=== PATIENT | female | born 1940 | race Caucasian/White ===

== ENCOUNTER 2017-07-01 21:19 | Inpatient (IN) | payer MEDICARE, BC ==
[~2017-07-01] VITALS: Ht 167.6 cm; Wt 77.1 kg
--- NOTE | ~2017-07-01 | DS ---
Discharge Summary [facility] [address] [facility] [address] [place]. [address] NAME: SANDRA SMITH : 40 STATUS : DIS IN PAT#: [id number] AGE: 77 ADM/REG DATE : 07/02/17 MR#: [id number] REPORT SERV DATE: 07/06/17 DICTATED BY: DATE: REPORT STATUS : Draft TRANSCRIBED BY: MODL DATE: 07/03/17 ADMISSION DATE: 07/02/2017 DISCHARGE DATE: 07/03/2017 [facility] CONSULTANTS: Dr. James Sexton, of Gastroenterology. DISCHARGE DIAGNOSES: 1. Acute blood loss anemia-symptomatic due to upper gastrointestinal bleed. 2. Evidence of multiple linear ulcerations and hiatal hernia on EGD, suspect due to recent nonsteroidal anti-inflammatory use. 3. Scoliosis and chronic pain syndrome. 4. History of osteoarthritis. 5. Dysuria-no evidence of urinary tract infection. 6. Allergic rhinitis. 7. Insomnia. 8. Hypertension. 9. History of occasional alcohol use. IMAGING: None. EGD July [address] James Sexton, shows 6 cm hiatal hernia. Three medium-sized nonbleeding linear gastric ulcers with no stigmata of bleeding in the proximal stomach at the bottom of the hiatal hernia. Biopsies taken. PERTINENT LABS: Comprehensive metabolic panel normal. Hemoglobin initially 6.8, discharge hemoglobin 8.1, platelets normal. Coagulation studies normal. Urinalysis showed trace leukocyte esterase, rare bacteria, and no white blood cells. BRIEF HISTORY: For full details, please see the previously dictated history of present illness by Dr. Benjamín Obregon. This is a 77-year-old white female, sent by primary care provider, Dr. Blackman to the emergency department for a decline in hemoglobin with associated melena and weakness. She denied any other symptoms of symptomatic anemia- specifically no chest pain, shortness of breath, or tachycardia. The patient had recently been taking nonsteroidal anti-inflammatories for scoliosis. In the emergency department, her initial workup revealed a hemoglobin of 6.8, which represented a marked decline from prior values of 13. She had no abnormalities of her vital signs and was admitted to [address] [place] [address] for further management. HOSPITAL COURSE: The patient was placed on IV fluids, IV Protonix drip, and kept n.p.o. for GI evaluation. She was seen by nurse practitioner, UZIEL Mc on July 02 and set up for an upper endoscopy on July [address] James Sexton. Discharge Summary [place] [address] [place] [place]. [id number] NAME: SANDRA SMITH : 40 STATUS : DIS IN PAT#: [id number] AGE: 77 ADM/REG DATE : 07/02/17 MR#: [id number] REPORT SERV DATE: 07/06/17 DICTATED BY: DATE: REPORT STATUS : Draft TRANSCRIBED BY: MODL DATE: 07/03/17 The patient's hemoglobin and hematocrit values were trended serially, and she did require two units of packed red blood cells transfusion during the admission. She did not demonstrate any recurrence of her melena during the admission and on the EGD, there was no evidence of recent bleeding. She did have multiple linear ulcerations at the distal aspect of her hiatal hernia and the cause of her upper GI bleed is felt to be nonsteroidal anti- inflammatories. She was expressly instructed to discontinue all nonsteroidal anti- inflammatories and not to take any aspirin post discharge either. She will be placed on Protonix 40 mg p.o. twice a day for 8 weeks to follow up with her gauger chief delivery Dr. Mcgowan in the office in four to six weeks with a CBC. She should also follow up with primary care provider, Dr. Blackman within 7-14 days for hospital followup. She did endorse some dysuria during the admission and states she has a history of frequent urinary tract infections. Urinalysis here was not suggestive of a significant UTI, and she was not treated with antibiotics. She also endorsed some sinus congestion and was placed on Claritin and Flonase for this with improvement. Given that she is no longer able to take nonsteroidal anti-inflammatories, she was advised to take Tylenol for pain and was given a small supply of hydrocodone for discharge if her pain is refractory to Tylenol. DISCHARGE DISPOSITION: To home in the care of her supportive family with no specific activity or dietary restrictions. FOLLOWUP: Followup appointments as above. DISCHARGE MEDICATIONS: Include: 1. Fluorometholone eye drops in both eyes at bedtime. 2. Triamterene/HCTZ 37.5/25 mg p.o. daily-patient is noncompliant with this on pharmacy review. 3. Claritin 10 mg p.o. daily. 4. Wellbutrin 100 mg p.o. q.a.m. 5. Trazodone 150 mg p.o. at bedtime. 6. Nifedipine 30 mg p.o. daily-patient is noncompliant with this on pharmacy review. 7. Protonix 40 mg p.o. b.i.d. for 8 weeks. 8. Tylenol 650 mg p.o. q.6 hours p.r.n. pain. 9. Hydrocodone/acetaminophen 5/325 mg half to one tablet p.o. every six hours as needed for severe pain. Thirty tablets dispensed with no refills. Thirty five minutes was spent in completion of the discharge. MAKEDA/DIANDRA Brian Sawyer M.D. Discharge Summary [address] [address] NAME: SANDRA SMITH : 40 STATUS : DIS IN PAT#: [id number] AGE: 77 ADM/REG DATE : 07/02/17 MR#: [id number] REPORT SERV DATE: 07/06/17 DICTATED BY: DATE: REPORT STATUS : Draft TRANSCRIBED BY: DIANDRA DATE: 07/03/17 / [id number] CC: Juan Song M.D. Donald Hetzel, M.D.
--- NOTE | ~2017-07-01 | HP ---
History And Physical [place] [address] [place]. [address] NAME: SANDRA SMITH : 40 STATUS : ADM Estuardo PAT#: [id number] AGE: 77 ADM/REG DATE : 07/01/17 MR#: [id number] REPORT SERV DATE: 07/02/17 DICTATED BY: BENJAMÍN GUTIERREZ DATE: 07/02/17 REPORT STATUS : Draft TRANSCRIBED BY: MODL DATE: 07/02/17 DATE OF ADMISSION: 07/01/2017 CHIEF COMPLAINT: Black, tarry stool. HISTORY OF PRESENT ILLNESS: This is a 77-year-old female who was sent by her primary care physician, Dr. Blackman, to the emergency room for a fall in her hemoglobin and hematocrit levels and GI bleeding. History is obtained from the patient, her who is at bedside, and reviewing data available on the [employer] system. According to the patient and her , she had been in her usual state of health until about four days ago when she had a bowel movement with black, tarry stools. She knew it was blood in the stool, and called Dr. Blackman's office, and blood work was drawn. Today, they called her to have her report to the emergency room for further evaluation. According to the patient, other than that one episode of black, tarry stools, she has had no further bleeding. She feels fine. Does not have any dyspnea with exertion or palpitations. In the emergency room, initial workup revealed a hemoglobin of 6.8, hematocrit of 23.2. Hospitalist Service is asked to admit her for further evaluation and treatment. At the time of my evaluation, she denied any chest pain, palpitations, or orthopnea. She had no cough, hemoptysis, night sweats, or weight loss. She denied any recent falls or loss of consciousness. No history of recent fevers, chills, nausea, vomiting, diarrhea. No history of hematemesis or hematuria. No other history of recent travel or exposures other than those mentioned above. PAST MEDICAL HISTORY: Significant for history of hypertension, osteoarthritis controlled by [id number] NSAIDs, and has had a hysterectomy in the past as well. SOCIAL HISTORY: She does not smoke. Drinks about two mixed drinks on a daily basis at night and does not use any recreational drugs. She used to work in an office-based environment. FAMILY HISTORY: Noncontributory. MEDICATIONS: Her medications at home were reviewed by me in the chart today and reordered by me. REVIEW OF SYSTEMS: As in history of present illness. All other systems were reviewed in detail and are quite unremarkable. PHYSICAL EXAMINATION: GENERAL: This is a pleasant 77-year-old, not in any acute distress. HEENT: Head is atraumatic, normocephalic. She is alert, awake, oriented to time, place, and person. Her pupils are equal, reacting to light and accommodating. External ocular muscles are intact. Membranes are moist and pink. Sclerae are nonicteric. History And Physical [address] [address] NAME: SANDRA SMITH : 40 STATUS : ADM Estuardo PAT#: [id number] AGE: 77 ADM/REG DATE : 07/01/17 MR#: [id number] REPORT SERV DATE: 07/02/17 DICTATED BY: BENJAMÍN GUTIERREZ DATE: 07/02/17 REPORT STATUS : Draft TRANSCRIBED BY: DIANDRA DATE: 07/02/17 NECK: Supple with no jugular venous distention, lymphadenopathy, or thyromegaly. LUNGS: Clear to auscultation with no wheezes, rubs, or crackles. HEART: Heart sounds were regular with no murmurs, rubs, or gallops. ABDOMEN: Soft, nontender. Bowel sounds are present. EXTREMITIES: Showed no cyanosis, clubbing, or edema. NEURO: Grossly intact. No focal sensory or motor deficits. Higher functions appear intact. VITAL SIGNS: Her temperature was 98.5, pulse 91, respirations 18 a minute, blood pressure was 160/77, oxygen saturations were 97% breathing 2 L of oxygen via nasal cannula. LABORATORY DATA: Reviewed on the [employer] system showed a normal CMP with a blood glucose of 91. Her alkaline phosphatase, ALT, and AST are within normal limits. CBC showed a white blood cell count of 8700, hemoglobin of 6.8, hematocrit of 23.2 which had dropped from 12.8 and 38.7, although that was in 02/2013. Her MCV was 70.7 and platelet count was 447,000. Prothrombin time was 13.9 with an INR of 1.1. No imaging was done in the emergency room today and an EKG done in the emergency room showed normal sinus rhythm at a rate of 89 per minute without any acute ST-T changes. IMPRESSION: 1. Acute upper gastrointestinal bleeding. 2. Anemia secondary to blood loss. 3. Hypertension. 4. Osteoarthritis. PLAN: We will admit Ms. Smith to the Hospitalist Service with telemetry for a 24-hour observation. We will follow serial hemoglobin and hematocrit levels; type, cross, and transfuse if necessary. We will go ahead and consult Dr. Mcgowan, her material planning analyst, to see her in the morning and keep her n.p.o. for now. She will also be placed on a Protonix infusion at this time. We will hold her p.o. medications and provide hydralazine intravenously to control her blood pressures. She will also be placed on SCDs for DVT prophylaxis while here. I have discussed the above plans with the patient and the . Questions were answered, and they are agreeable to the above recommendations. Hospitalist Service will be following her during her stay here. /DIANDRA Benjamín Gutierrez M.D. / [id number] CC: Brian Sawyer M.D. Sixto Blackman M.D.
--- NOTE | ~2017-07-01 | EGD ---
EGD REPORT [facility] [address] [place] [place] [address] NAME: SANDRA SMITH : 40 STATUS : ADM IN PAT#: [id number] AGE: 77 ADM/REG DATE : 07/02/17 MR#: [id number] REPORT SERV DATE: 07/03/17 DICTATED BY: DATE: REPORT STATUS : Draft TRANSCRIBED BY: [employer] DATE: 07/03/17 [facility] Patient Name: Sandra Smith Date of : 1940 Attending MD: JODIE TALBOT MD Procedure Date No Time: 07/03/2017 Procedure: Upper GI endoscopy Indications: Melena, anemia (Hgb 6.8), new prescription of NSAIDs. Medicines: Monitored Anesthesia Care Complications: No immediate complications. Procedure: Pre-Anesthesia Assessment: - ASA Grade Assessment: II - A patient with mild systemic disease. After obtaining informed consent, the endoscope was passed under direct vision. Throughout the procedure, the patient's blood pressure, pulse, and oxygen saturations were monitored continuously. The GIF [id number] was introduced through the mouth, and advanced to the second part of duodenum. The upper GI endoscopy was accomplished without difficulty. The patient tolerated the procedure well. Findings: A 6 cm hiatus hernia was found. The proximal extent of the gastric folds (end of tubular esophagus) was 35 to 41 cm from the incisors. The Z-line was 35 cm from the incisors. Three medium sized non-bleeding linear gastric ulcers with no stigmata of bleeding were found in the proximal stomach, just at the bottom of her hiatal hernia where the pinch of the hiatus began. I suspect her NSAID use and hiatal hernia were the cause. Biopsies were taken with a cold forceps for Helicobacter pylori cultures. The examined duodenum was normal. Impression: - Hiatus hernia. - Gastric ulcers with clean base. Biopsied. - Normal examined duodenum. Recommendation: - Await pathology results. - Use Protonix (pantoprazole) 40 mg PO BID for 8 weeks. - No aspirin, ibuprofen, naproxen, or other non-steroidal anti-inflammatory drugs. - Regular diet. - Given NSAID use and multiple superficial ulcerations, can debate repeating EGD to assess for resolution but will discuss that in clinic. EGD REPORT [address] [place]. [address] NAME: SANDRA SMITH : 40 STATUS : ADM IN [facility]#: [id number] AGE: 77 ADM/REG DATE : 07/02/17 MR#: [id number] REPORT SERV DATE: 07/03/17 DICTATED BY: DATE: REPORT STATUS : Draft TRANSCRIBED BY: [employer] DATE: 07/03/17 -Follow up with Dr. Mcgowan in 4-6 weeks. Procedure Code(s): --- Professional --- 17071, Esophagogastroduodenoscopy, flexible, transoral; with biopsy, single or multiple Diagnosis Code(s): --- Professional --- K44.9, Diaphragmatic hernia without obstruction or gangrene K25.9, Gastric ulcer, unspecified as acute or chronic, without hemorrhage or perforation K92.1, Melena CPT copyright 2013 [employer]. All rights reserved. The codes documented in this report are preliminary and upon electrical system specialist review may be revised to meet current compliance requirements. JODIE TALBOT MD 07/03/2017 7:57 AM Number of Addenda: 0 Note Initiated On: 07/03/2017 7:16 AM Scope Withdrawal Time 0 hours 0 minutes 0 seconds [address] [place] [address]
--- NOTE | ~2017-07-01 | CN ---
Consultation Report [facility] [address] [place]. [address] NAME: SANDRA SMITH : 40 STATUS : ADM Estuardo PAT#: [id number] AGE: 77 ADM/REG DATE : 07/01/17 MR#: [id number] REPORT SERV DATE: 07/02/17 DICTATED BY: DEBBIE HODGES DATE: 07/02/17 REPORT STATUS : Draft TRANSCRIBED BY: MODL DATE: 07/02/17 GI CONSULTATION DATE OF CONSULTATION: 07/02/2017 REASON FOR CONSULTATION: Evaluation and management of upper GI bleed. HISTORY OF PRESENT ILLNESS: Ms. Smith is a 77-year-old female patient, who has been seen by Dr. Mcgowan in the past in the outpatient setting, who presented to [facility] after being evaluated by her primary care physician, Dr. Blackman, for anemia and complaints of black tarry stools. The patient states that she has been having back pain over the last two to three weeks with her on Wednesday taking Naprosyn, she states, for two days. The day after she stopped taking the Naprosyn, she had a black tarry bowel movement. She states that she went to see Dr. Blackman, he obtained blood work, they called her and told her that her hemoglobin was low and to report to the emergency room for further evaluation. She tells me that she does not have any abdominal pain. She has had no nausea, vomiting, or abdominal burning. No dysphagia or odynophagia. No bright red blood per rectum. No diarrhea or constipation. Her last colonoscopy was done in 2011 with colon polyps x5, several were tubular adenomas, and one was hyperplastic. She also had melanosis coli and sigmoid colon diverticulosis. She is currently due for her repeat colonoscopy. Hemoglobin on admission was 6.8. She has been given two units of packed red blood cells. Her last hemoglobin was checked and it was 7.4. She has had no further bleeding since coming into the hospital. Her vital signs have been stable. She is on a Protonix drip at present. She denies any associated fever, chest pain, shortness of breath, or weight loss. I have discussed with her that we will plan on letting her have clear liquids today, n.p.o. after midnight, and for endoscopy in the morning with Dr. Sexton. PAST MEDICAL HISTORY: Positive for hypertension, osteoarthritis, back pain with recent use of Naprosyn. PAST SURGICAL HISTORY: Includes a hysterectomy. FAMILY HISTORY: Noncontributory from a GI standpoint. SOCIAL HISTORY: She is and lives independently. She does not use tobacco. She drinks one to two mixed drinks nightly. Denies any illicit drugs. ALLERGIES: TO MORPHINE AND MEPERIDINE. HOME MEDICATIONS: Wellbutrin, Singulair, nifedipine, trazodone, and Dyazide. REVIEW OF SYSTEMS: A 10-point review of systems has been obtained with pertinent positives being addressed in the history of present illness. Consultation Report [facility] [address] [facility] [place]. [address] NAME: SANDRA SMITH : 40 STATUS : ADM Estuardo PAT#: [id number] AGE: 77 ADM/REG DATE : 07/01/17 MR#: [id number] REPORT SERV DATE: 07/02/17 DICTATED BY: DEBBIE HODGES DATE: 07/02/17 REPORT STATUS : Draft TRANSCRIBED BY: DIANDRA DATE: 07/02/17 PERTINENT LABORATORY DATA: Sodium 141, potassium 3.5, BUN is 19, creatinine 0.78. White count 8.2, hemoglobin 7.4, hematocrit 24.7, platelet count of 405. INR of 1.1. PHYSICAL EXAMINATION: VITAL SIGNS: Temperature 99.4, pulse 99, respirations 16, blood pressure is 142/70. NEURO: Reveals an alert female, resting in bed with no focal deficits. GENERAL: She is cooperative. She is in no acute distress. She is awake, alert, and oriented x3. HEAD, EARS, EYES, NOSE, AND THROAT: Anicteric. Pupils equal, round, reactive to light and accommodation. Normocephalic and atraumatic. NECK: Supple with no JVD or palpable nodes. LUNGS: Clear anteriorly with normal respiratory effort exhibited. Equal expansion. CARDIOVASCULAR SYSTEM: Regular rate and rhythm. S1 and S2. No murmurs, rubs, gallops, S3, or S4 appreciated. ABDOMEN: Soft, nontender, nondistended with active bowel sounds in all four quadrants. EXTREMITIES: No edema. Normal distal pulses. SKIN: Warm, dry, and intact. ASSESSMENT: 1. Recent melena after Naprosyn use. 2. Back pain/scoliosis with recent NSAID use. 3. Acute blood loss anemia, status post two units of packed red blood cells. PLAN: 1. Continue Protonix drip. 2. Clear liquid diet and n.p.o. after midnight. 3. Trend H and H, transfuse if additional blood needed. 4. EGD in the morning with Dr. Sexton. 5. Morning labs, CBC, BMP, PT/INR. We will follow. CALIN/DIANDRA Debbie UZIEL Nava / [id number] CC: Brian Sawyer M.D. Sixto Blackman M.D.
[~2017-07-01 21:19] MED LIST: ADVIL PM1 CAP PO; CENTRUM TAB1 TAB PO; DYAZIDE1 CAP PO; ESTRACE1 MG PO; ESTRACE2 MG PO; MAX25 PO; NAP500 PO; OS500+D PO; TYLENOL PM PO
[2017-07-01 21:57] LABS: BASOPHILS 0.8 %; BASOPHILS ABSOLUTE 0.07 10/3/uL (0.0-0.16); EOSINOPHILS 3.2 %; EOSINOPHILS ABSOLUTE 0.28 10/3/uL (0.0-0.53); ER CBC TAT 0 Hrs 07 Mins; IMMATURE GRANULOCYTES 0.2 %; IMMATURE GRANULOCYTES ABSOLUTE 0.02 10/3/uL (0.0-0.11); LYMPHOCYTES 14.4 %; LYMPHOCYTES ABSOLUTE 1.25 10/3/uL (0.67-4.30); MEAN PLATELET VOLUME 8.2 fL (9.2-13.0); MONOCYTES 9.6 %; MONOCYTES ABSOLUTE 0.83 10/3/uL (0.21-1.20); NEUTROPHILS 71.8 %; NEUTROPHILS ABSOLUTE 6.24 10/3/uL (2.02-8.40); PLATELET COUNT 447 10/3/uL (150-400); RED CELL COUNT 3.28 10/6/uL (4.0-5.6); WHITE BLOOD CELLS 8.7 10/3/uL (4.5-10.5)
[2017-07-01 21:59] LABS: HEMATOCRIT 23.2 % (36.0-48.0); HEMOGLOBIN 6.8 g/dL (12.0-16.0); MEAN CORPUS HGB CONC 29.3 g/dL (32.0-36.0); MEAN CORPUSCULAR HEMOGLOB 20.7 pg (26.0-34.0); MEAN CORPUSCULAR VOLUME 70.7 fL (80-100); RBC DISTRIBUTION WIDTH 18.4 % (12.0-16.0)
[2017-07-01 22:00] LABS: MANUAL DIFF NO %
[2017-07-01 22:05] LABS: INTERNATIONAL NORMAL RATI 1.1 UNITS (-); PARTIAL THROMBO TIME 26.2 SEC (22.5-37.2); PROTIME (NOT ORD) 13.9 SEC (12.0-14.5)
[2017-07-01 22:10] LABS: A/G RATIO 1.2 (0.7-1.9); ALBUMIN 4.2 G/DL (3.5-5.0); BUN (BLOOD UREA NITROGEN) 21 MG/DL (6-23); CALCIUM, SERUM 9.3 MG/DL (8.5-10.4); CHLORIDE, SERUM 108 MMOL/L (96-112); CO2 (CARBON DIOXIDE) 24 MMOL/L (24-34); CREATININE 0.99 MG/DL (0.55-1.02); GFR AFRICAN AMERICAN 64 ML/MIN (>=60); GFR NON AFRICAN AMERICAN 55 ML/MIN (>=60); GLOBULIN 3.4 G/DL (2.5-4.1); GLUCOSE, SERUM 91 MG/DL (60-99); POTASSIUM, SERUM 3.8 MMOL/L (3.5-5.3); SGOT(AST) 32 U/L (5-40); SGPT(ALT) 34 U/L (5-65); SODIUM, SERUM 141 MMOL/L (135-148); TOTAL BILIRUBIN 0.3 MG/DL (0-1.2); TOTAL PROTEIN 7.6 G/DL (6.0-8.5)
[2017-07-01 22:12] LABS: ALKALINE PHOSPHATASE 97 U/L (45-117)
[2017-07-01 22:25] LABS: HYPOCHROMIA 3+ (>30/OIF) (0-2/OIF); POLYCHROMASIA 1+ (2-5/OIF) (0-1/OIF); TARGET CELLS FEW (3-10/OIF) (0-1/OIF)
[2017-07-01 22:26] LABS: ANISOCYTOSIS 1+ (5-10/OIF) (0-5/OIF); PLATELET ESTIMATE SLT INC (ADEQUATE)
[2017-07-01] MEDS ORDERED: WELLSR100 PO (23:36)
[2017-07-01] MEDS ORDERED: SINGULAIR1 PO (23:37)
[2017-07-01] MEDS ORDERED: TRAZODONE150 MG PO (23:37)
[2017-07-01] MEDS ORDERED: FML OPH SUSP5 ML OPH (23:40)
[2017-07-01] MEDS ORDERED: DYAZIDE1 CAP PO (23:41)
[2017-07-01] MEDS ORDERED: AFEDITAB30 MG PO (23:42)
[2017-07-02 06:50] LABS: BUN (BLOOD UREA NITROGEN) 19 MG/DL (6-23); CALCIUM, SERUM 8.8 MG/DL (8.5-10.4); CHLORIDE, SERUM 109 MMOL/L (96-112); CO2 (CARBON DIOXIDE) 22 MMOL/L (24-34); CREATININE 0.78 MG/DL (0.55-1.02); GFR AFRICAN AMERICAN 85 ML/MIN (>=60); GFR NON AFRICAN AMERICAN 73 ML/MIN (>=60); POTASSIUM, SERUM 3.5 MMOL/L (3.5-5.3); SODIUM, SERUM 141 MMOL/L (135-148)
[2017-07-02 06:52] LABS: GLUCOSE, SERUM 125 MG/DL (60-99)
[2017-07-02 07:15] LABS: BASOPHILS 0.5 %; BASOPHILS ABSOLUTE 0.04 10/3/uL (0.0-0.16); EOSINOPHILS 0.8 %; EOSINOPHILS ABSOLUTE 0.07 10/3/uL (0.0-0.53); HEMATOCRIT 24.7 % (36.0-48.0); HEMOGLOBIN 7.4 g/dL (12.0-16.0); IMMATURE GRANULOCYTES 0.2 %; IMMATURE GRANULOCYTES ABSOLUTE 0.02 10/3/uL (0.0-0.11); LYMPHOCYTES 12.3 %; LYMPHOCYTES ABSOLUTE 1.01 10/3/uL (0.67-4.30); MANUAL DIFF NO %; MEAN CORPUSCULAR HEMOGLOB 21.1 pg (26.0-34.0); MEAN CORPUSCULAR VOLUME 70.4 fL (80-100); MEAN PLATELET VOLUME 8.8 fL (9.2-13.0); MONOCYTES 6.4 %; MONOCYTES ABSOLUTE 0.53 10/3/uL (0.21-1.20); NEUTROPHILS 79.8 %; NEUTROPHILS ABSOLUTE 6.57 10/3/uL (2.02-8.40); PLATELET COUNT 405 10/3/uL (150-400); RBC DISTRIBUTION WIDTH 18.1 % (12.0-16.0); RED CELL COUNT 3.51 10/6/uL (4.0-5.6); WHITE BLOOD CELLS 8.2 10/3/uL (4.5-10.5)
[2017-07-02 07:31] LABS: ANISOCYTOSIS 1+ (5-10/OIF) (0-5/OIF); PLATELET ESTIMATE SLT INC (ADEQUATE)
[2017-07-02 07:32] LABS: GIANT PLATELET OCC
[2017-07-02 10:21] LABS: HEMATOCRIT 24.5 % (36.0-48.0); HEMOGLOBIN 7.3 g/dL (12.0-16.0)
[2017-07-02 16:40] LABS: HEMOGLOBIN 8.4 g/dL (12.0-16.0)
[2017-07-02 16:42] LABS: HEMATOCRIT 27.7 % (36.0-48.0)
[2017-07-02 22:14] LABS: ASCORBIC ACID (UR NOT ORDER) NEG (NEG); BILIRUBIN, URINE NEGATIVE (NEG); KETONE, URINE NEGATIVE (NEG); LEUKOCYTE ESTERASE(NOT OR TRACE (NEG); WBC (NOT ORDERED) (RFLEX) 5 (0-5)
[2017-07-02 23:14] LABS: HEMATOCRIT 28.8 % (36.0-48.0); HEMOGLOBIN 8.6 g/dL (12.0-16.0)
[2017-07-03 04:15] LABS: INTERNATIONAL NORMAL RATI 1.1 UNITS (-); PROTIME (NOT ORD) 14.1 SEC (12.0-14.5)
[2017-07-03 04:24] LABS: BASOPHILS 0.3 %; BASOPHILS ABSOLUTE 0.02 10/3/uL (0.0-0.16); EOSINOPHILS 2.5 %; EOSINOPHILS ABSOLUTE 0.19 10/3/uL (0.0-0.53); HEMATOCRIT 26.5 % (36.0-48.0); HEMOGLOBIN 8.1 g/dL (12.0-16.0); IMMATURE GRANULOCYTES 0.1 %; IMMATURE GRANULOCYTES ABSOLUTE 0.01 10/3/uL (0.0-0.11); LYMPHOCYTES 14.5 %; MEAN CORPUS HGB CONC 30.6 g/dL (32.0-36.0); MEAN CORPUSCULAR HEMOGLOB 22.1 pg (26.0-34.0); MEAN CORPUSCULAR VOLUME 72.4 fL (80-100); MEAN PLATELET VOLUME 8.5 fL (9.2-13.0); MONOCYTES 12.1 %; MONOCYTES ABSOLUTE 0.92 10/3/uL (0.21-1.20); NEUTROPHILS 70.5 %; NEUTROPHILS ABSOLUTE 5.36 10/3/uL (2.02-8.40); PLATELET COUNT 386 10/3/uL (150-400); RED CELL COUNT 3.66 10/6/uL (4.0-5.6); WHITE BLOOD CELLS 7.6 10/3/uL (4.5-10.5)
[2017-07-03 04:25] LABS: MANUAL DIFF NO %
[2017-07-03 04:28] LABS: CALCIUM, SERUM 8.7 MG/DL (8.5-10.4); CHLORIDE, SERUM 109 MMOL/L (96-112); CO2 (CARBON DIOXIDE) 24 MMOL/L (24-34); CREATININE 0.74 MG/DL (0.55-1.02); GFR AFRICAN AMERICAN 91 ML/MIN (>=60); GFR NON AFRICAN AMERICAN 78 ML/MIN (>=60); POTASSIUM, SERUM 3.7 MMOL/L (3.5-5.3); SODIUM, SERUM 142 MMOL/L (135-148)
[2017-07-03 04:31] LABS: BUN (BLOOD UREA NITROGEN) 9 MG/DL (6-23); GLUCOSE, SERUM 99 MG/DL (60-99)
[2017-07-03 05:32] LABS: BASOPHILIC STIPPLING 1+ (2-5/OIF) (0-1/OIF)
[2017-07-03] MEDS ORDERED: CLARIT10 PO (10:06)
[2017-07-03] MEDS ORDERED: PROTONIX PO (10:07)
[2017-07-03] MEDS ORDERED: NORCO1 TA1 PO (10:08)
[2017-07-03] MEDS ORDERED: T PO (10:11)
[2017-07-03 10:32] LABS: HEMATOCRIT 29.8 % (36.0-48.0)
== END 2017-07-03 11:59 | disposition home or self-care (01) | DRG 378 ==
LOC: ER 21:19 → 7NO 23:38
PROVIDERS: Emergency Medicine; Hospitalist; Internal Medicine Pulmonary Disease; Nurse Practitioner Family
PROC: 30233N1 Transfusion of Nonautologous Red Blood Cells into Peripheral Vein, Percutaneous Approach (ICD-10-PCS; principal; 2017-07-02)
PROC: 0DB68ZX Excision of Stomach, Via Natural or Artificial Opening Endoscopic, Diagnostic (ICD-10-PCS; 2017-07-03)
DX: K25.4 Chronic or unspecified gastric ulcer with hemorrhage (principal); D62 Acute posthemorrhagic anemia; I10 Essential (primary) hypertension; Z86.010 Personal history of colon polyps; K44.9 Diaphragmatic hernia without obstruction or gangrene; T39.395A Adverse effect of other nonsteroidal anti-inflammatory drugs [NSAID], initial encounter; M19.90 Unspecified osteoarthritis, unspecified site; Z79.1 Long term (current) use of non-steroidal anti-inflammatories (NSAID); J30.9 Allergic rhinitis, unspecified; R30.0 Dysuria; G47.00 Insomnia, unspecified; G89.4 Chronic pain syndrome
CPT/HCPCS: 36415; 80048; 80053; 81001; 82270; 83735; 84100; 85014; 85018; 85025; 85610; 85730; 86850; 86900; 86901; 86920; 88305; 88342; 93005; 99285; A9270-GY; C9113; J0360; J2405; P9016